=== PATIENT | female | born 1975 | race Caucasian/White ===

== ENCOUNTER 2024-06-08 08:30 | Outpatient (CLI) | payer BC, SELFPAY ==
--- NOTE | ~2024-06-08 | US_ITS ---
EXAMINATION: US retroperitoneal duplex ltd DATE: 06/08/2024 08:53 INDICATION: Essential hypertension TECHNIQUE: Multiple grayscale, color Doppler, and pulsed Doppler images of the kidneys and renal keanu nestor were obtained. COMPARISON: None. FINDINGS: The aorta peak systolic velocity is 109 cm/s. The right renal artery peak systolic velocity is 65 cm/ s in the proximal segment, 81 cm/s in the mid segment, and 64 cm/s in the distal segment. The left re nal artery peak systolic velocity is 113 cm/s in the proximal segment, 119 cm/s in the mid segment, a nd 97 cm/s in the distal segment. Incidentally noted is a 1 cm nonshadowing hyperechoic region within a 1.5 cm otherwise anechoic cystic lesion at the upper pole of the right kidney IMPRESSION: 1. No Doppler evidence of renal artery stenosis. 2. 1.5 cm complex cystic lesion at the upper pole the right kidney with 1.0 cm nodular hypoechoic reg ion within the cystic lesion without posterior acoustic shadowing to suggest a stone and could not ex clude a cystic neoplasm. Recommend further evaluation with pre and postcontrast MRI or CT. Reviewed, dictated and finalized at location B. IMPRESSION: 1. No Doppler evidence of renal artery stenosis. 2. 1.5 cm complex cystic lesion at the upper pole the right kidney with 1.0 cm nodular hypoechoic region within the cystic lesion without posterior acoustic s hadowing to suggest a stone and could not exclude a cystic neoplasm. Recommend further evaluation with pre and postcontrast MRI or CT.
== END 2024-06-08 08:31 | disposition home or self-care (01) ==
PROVIDERS: PCP Physician Assistant Medical; Visit Provider Physician Assistant Medical
DX: R93.89 Abnormal findings on diagnostic imaging of other specified body structures (principal); N28.1 Cyst of kidney, acquired; I10 Essential (primary) hypertension
CPT/HCPCS: 93976

== ENCOUNTER 2024-06-30 10:30 | Outpatient (CLI) | payer BC, SELFPAY ==
--- NOTE | ~2024-06-30 | MR_ITS ---
EXAMINATION: MR renal wo/w con DATE: 06/30/2024 12:07 INDICATION: Indeterminate renal lesion on prior ultrasound. TECHNIQUE: Magnetic resonance imaging (MRI) of the abdomen was performed without and with 13 mL ProHa nce intravenous contrast. Sequences included coronal T2-weighted SS-FSE, coronal and axial FS 2D-FIE STA, axial STIR FSE, axial T2-weighted SS-FSE, axial T2-weighted FS SS-FSE, axial diffusion-weighted SE, axial dual-echo T1-weighted FSPGR, and axial and coronal T1-weighted LAVA. Postcontrast axial T1- weighted LAVA images were obtained in a time course. Postcontrast coronal T1-weighted LAVA images wer e obtained. Due to poor contrast enhancement on the initial study likely due to extravasation the pa tient was returned on the following day for repeat postcontrast images utilizing a second bolus of 13 mm ProHance intravenous contrast. COMPARISON: Ultrasound dated 06/08/2024 FINDINGS: Heart size is normal. No pericardial or pleural effusion. 5.5 x 3.9 cm cavernous hemangioma at the do me of the liver with characteristic lobular margins, T2 hyperintensity and peripheral discontiguous p uddling of contrast which gradually fills in on the delayed imaging. Normal appendix. Spleen, pancrea s and bilateral adrenal glands are normal. There are a few subcentimeter T2 hyperintense nonenhancing bilateral renal cysts. There is a larger 2.2 x 1.5 similar T2 hyperintense cystic lesion at the uppe r pole of the right kidney with single 2 mm thick, smooth enhancing internal septation and without no dular enhancing soft tissue component which would be consistent with a Bosniak 2 lesion requiring no further follow-up. Visualized portions of bowels are unremarkable with no obstruction. No pathologica lly enlarged abdominal lymphadenopathy. Metallic magnetic field artifact associated with bilateral ve rtical eloisa and pedicle screw fixation at L5-S1. IMPRESSION: 1. Right renal lesion of concern corresponds to a 2.2 cm Bosniak 2 cystic lesion requiring no further follow-up. Reviewed, dictated and finalized at location A. IMPRESSION: 1. Right renal lesion of concern corresponds to a 2.2 cm Bosniak 2 cystic lesio n requiring no further follow-up.
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
--- OUTSIDE RECORDS SUMMARY | 2024-06-30 11:41 | XMS_ITS | Clinical Summary ---
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 Gender Identity Not on file Sexual Orientation Not on file Plan of Treatment Health Maintenance Due Date Last Done Comments Hepatitis C Virus (HCV) Screening 1977 Hepatitis B Immunization (1 of 3 - 19+ 3-dose series) 02/02/1996 Pap Smear 1998 Cervical Cancer Screening (CCS) 2007 HPV/Cotest 2007 Discussion re Starting/Frequency of Mammograms 2017 Colonoscopy 2022 Colorectal Cancer Screening 2022 Influenza Immunization (#1) 2023 12/25/2019, 1 SARS-COV-2 Immunization ( season) 2023 Respiratory Syncytial Virus (RSV) Immunization (Adult) (1 - 1-dose 75+ series) 02/02/2052 DTaP/Tdap/Td Immunization Discontinued 2017, 10/25/2017, 10/21/2017, Additional history exists TdaP Immunization Completed 11/16/2017, , 05/06/2014 Meningococcal Immunization (ACWY) Aged Out No longer eligible based on patient's age to complete this topic Pneumococcal Immunization Combined Aged Out No longer eligible based on patient's age to complete this topic Rotavirus Immunization Aged Out No lo nger eligible based on patient's age to complete this topic
--- OUTSIDE RECORDS SUMMARY | 2024-06-30 11:41 | XMS_ITS | Clinical Summary ---
Author Organization [facility] Address [address] [place] [address] Care Team Providers Care Fire Protection Engineering Technician Name Role Phone Viky Lobo PA-C Primary Care Provider [phone] Allergies No known active allergies Medications ALPRAZolam 0.5 MG tablet Take 1 tablet (0.5 mg total) by mouth as needed. 6 Active duloxetine 30 MG capsule Take 1 capsule (30 mg total) by mouth daily. Active vitamin B-12 (CYANOCOBALAMIN ) (CYANOCOBALAMIN ) 1000 mcg tablet Take 1 tablet (1,000 mcg total) by mouth daily. Active topiramate (TOPAMAX) 100 MG tablet Take 1 tablet (100 mg total) by mouth every evening. 3 Active gabapentin (NEURONTIN) 300 MG capsule Post op med 3 Active ketorolac (TORADOL) 10 MG tablet Post op med 3 Active oxyCODONE immediate release (ROXICODONE) 5 MG immediate release tablet Post op med 3 Active CONTRAVE 12 hr tablet Starting month 1 TAB DAILY 7 Days, THEN 1 TWICE DAILY 7 Days, THEN 2 in the AM AND 1 in the PM 7 Days THEN your maintenance dose is 2 TWICE DAILY 3 Active Active Problems No known active problems Family History Medical History Relation Comments Stroke Maternal Grandfather Diabetes Maternal Grandmother Breast Cancer Other Breast Cancer Paternal Aunt Relation Status Comments Maternal Aunt Maternal Grandfather Maternal Grandmother Other Paternal Aunt Social History Tobacco Use Types Packs/Day Years Used Date Smoking Tobacco: Never Smokeless Tobacco: Never Alcohol Use Standard Drinks/Week Comments Yes 0 (1 standard drink = 0.6 oz pur e alcohol) socially AUDIT-C Answer Date Recorded Frequency of Alcohol Consumption Never 02/15/2019 Average Number of Drinks Not on file 019 Frequency of Binge Drinking Not on file 03/2018 Comments No Sex and Gender Information Value Date Recorded Sex Assigned at Female 05/14/2024 8:41 AM GAS LEAK TESTER Legal Sex Female 5:20 PM CDT Gender Identity Not on file Sexual Orientation Not on file Last Filed Vital Signs Vital Sign Reading Time Taken Comments Blood Pressure 161/105 03/17/2024 1:00 PM GAS LEAK TESTER Pulse 98 03/17/2024 11:30 AM GAS LEAK TESTER Temperature 36.7 C (98 F) 03/17/2024 11:30 AM GAS LEAK TESTER Respiratory Rate 20 03/17/2024 11:30 AM GAS LEAK TESTER Oxygen Saturation 95% 03/17/2024 1:05 PM GAS LEAK TESTER Inhaled Oxygen Concentration - - Weight 60.3 kg (133 lb) 03/17/2024 11:30 AM GAS LEAK TESTER Height 160 cm (5' 3 ) 03/17/2024 11:30 AM GAS LEAK TESTER Body Mass Index 23.56 03/17/2024 11:30 AM GAS LEAK TESTER Plan of Treatment Upcoming Encounters Date Type Department Care Team (Late st Contact Info) Description 07/02/2024 12:15 PM CDT [facility] [address] [place] [phone] Dustin Baugh MD [facility]. [address] [address] Health Maintenance Due Date Last Done Comments Cervical Cancer Screening Pap Smear (Age 30 to 64) Every 3 Years 1977 Colorectal Cancer Screening Colonoscopy (10 Years) 1977 Annual Physical 02/02/1980 Hepatitis B Vaccines (1 of 3 - 19+ 3-dose series) 02/02/1996 Cervical Cancer Screening Pap with HPV Testing (Age 30 to 64) Every 5 Years 2007 Cervical Cancer Screening with HPV 2007 COVID-19 Vaccine ( season) 2023 Mammogram Screening 12/26/2025 12/27/2023, 03/15/2022, 12/09/2020, Additional history exists DTaP, Tdap and Td Vaccines (3 - Td or Tdap) 10/07/2030 10/07/2020, 10/25/2017 Hepatitis C Completed 09/30/2015 Meningococcal B Vaccine Aged Out No l onger eligible based on patient's age to complete this topic Meningococcal Vaccine Aged Out No hugh juan eligible based on patient's age to complete this topic Pneumococcal Vaccine: Pediatrics (0 to 5 Years) and At-Risk Patients (6 to 49 Years) Aged Out No longer eligible based on patient's age to complete this topic RSV Immunizations Under 20 Months Aged Out No longer eligible based on patient's age to complete this topic Procedures Procedure Name Priority Date/Time Associated Diagnosis Comments MG SCREENING W GENA THAO DIGI Routine 12/27/2023 12:51 PM CDT Encounter for screening mammogram for malignant neoplasm of breast from Last 3 Months or Most Recently Relevant to Health Maintenance Results * MG SCREENING W GENA THAO DIGI (12/27/2023 12:51 PM CDT) Anatomical Region Laterality Modality Breast Bilateral Mammography 12/27/2023 4:16 PM CDT Impressions 12/27/2023 4:28 PM CDT ===== IMPRESSION: ===== 1. Stable mammographic appearance with no new findings to suggest malignancy in either breast. Assessment: ACR BI-RADS 1 - NEGATIVE Recommendation: 1:Routine Screening Bilateral Comments: Ordered By: GUERO KAHN Interpreted By: Lexi Silverman, 12/27/2023 4:16 PM Narrative 12/27/2023 4:28 [place] [address] EXAMINATION: Digital bilateral screening mammogram with 3-D tomosynthesis EXAM DATE/TIME: 12/27/2023 12:18 PM REASON FOR EXAM: Routine screening Breast carcinoma and aunt in her 50s COMPARISON: 12/09/2020. 03/15/2022 Technique: Digital screening mammography of both breasts was performed in addition to 3-D Tomosynthesis technique. This study was read with the assistance of a computer-aided detection system. Tissue density: There are scattered areas of fibroglandular density. Findings: There is no new focal asymmetry, dominant mass lesion, area of skin thickening, or cluster of suspicious appearing calcifications in either breast to suggest malignancy. us Guero Kahn MD MAMMO Final Resul t from Last 3 Months or Most Recently Relevant to Health Maintenance Insurance [facility] Advance Directives * Full Code (Latest Code Status on File) Date Activated Date Inactivated Comments 12/10/2022 11:14 AM 12/10/2022 4:15 PM Care Teams Fire Protection Engineering Technician Relationship Specialty Start Date End Date Viky Lobo PA-C [address] [place] [address] [address] [place] [address] PCP - General PHYSICIAN SUPERINTENDENT TRACK 09/28/22
--- OUTSIDE RECORDS SUMMARY | 2024-06-30 11:42 | XMS_ITS | Encounter Summary ---
Author Organization [facility] Address [facility] [place] [address] Care Team Providers Care Crutching Contractor Name Role Phone Elaine Judge NP Primary Care Provider Victor Manuel Rod MD Primary Care Provider [phone] Viky Lobo PA-C Primary Care Provider [phone] Encounter Details Date Type Department Care Team (Late st Contact Info) Description 04/03/2016 Abstract [facility] CONVERSION [address] [place] [address] , Generic ConversionMD Social History Tobacco Use Types Packs/Day Years Used Date Smoking Tobacco: Never Assessed Comments Unknown Sex and Gender Information Value Date Recorded Sex Assigned at Female 05/14/2024 8:41 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 [address] [place] [phone] Dustin Baugh MD [facility]. [address] [place] [address] [place] [address] documented as of this encounter Visit Diagnoses Not on filedocumented in this encounter Care Teams Crutching Contractor Relationship Specialty Start Date End Date Elaine Judge NP [address] [place] [address] PCP - General NURSE PRACTITIONER 09/25/18 04/24/20 Victor Manuel Rod MD [address] [place] [id number] PCP - General INTERNAL MEDICINE 04/25/20 09/27/22 Viky Lobo PA-C [address] [place] [id number] PCP - General PHYSICIAN FREIGHT TEAM ASSOCIATE 09/28/22 documented as of this encounter
--- OUTSIDE RECORDS SUMMARY | 2024-06-30 11:42 | XMS_ITS | Encounter Summary ---
Author Organization [facility] Address [facility] [place] [address] Care Team Providers Care Customs Verifier Name Role Phone Elaine Judge NP Primary Care Provider Victor Manuel Rod MD Primary Care Provider [phone] Viky Lobo PA-C Primary Care Provider [phone] Encounter Details Date Type Department Care Team (Late st Contact Info) Description 12/09/2017 Abstract [facility] CONVERSION [address] [place] [address] , Generic ConversionMD Social History Tobacco Use Types Packs/Day Years Used Date Smoking Tobacco: Never Assessed Comments Unknown Sex and Gender Information Value Date Recorded Sex Assigned at Female 05/14/2024 8:41 AM ESCORT BLIND Legal Sex Female 5:20 PM CDT Gender Identity Not on file Sexual Orientation Not on file documented as of this encounter Plan of Treatment Upcoming Encounters Date Type Department Care Team (Late st Contact Info) Description 07/02/2024 12:15 PM CDT [facility] [place] [facility] [address] [place] [phone] Dustin Baugh MD [facility]. [place] [address] [place] [address] documented as of this encounter Visit Diagnoses Not on filedocumented in this encounter Care Teams Customs Verifier Relationship Specialty Start Date End Date Elaine Judge NP [address] [place] [address] PCP - General NURSE PRACTITIONER 09/25/18 04/24/20 Victor Manuel Rod MD [address] [place] [id number] PCP - General INTERNAL MEDICINE 04/25/20 09/27/22 Viky Lobo PA-C [address] [place] [id number] PCP - General PHYSICIAN COMMERCIAL FINANCE ANALYST 09/28/22 documented as of this encounter
--- OUTSIDE RECORDS SUMMARY | 2024-06-30 11:42 | XMS_ITS | Encounter Summary ---
Author Organization [facility] Address [facility] [place] [address] Care Team Providers Care Field Marketing Team Leader Name Role Phone Victor Manuel Rod MD Primary Care Provider [phone] Viky Lobo PA-C Primary Care Provider [phone] Encounter Details Date Type Department Care Team (Late st Contact Info) Description 07/29/2020 Mister Bell [facility] Patient Accounts [address] [place] [address] [facility] Financial Assistance Application Social History Tobacco Use Types Packs/Day Years Used Date Smoking Tobacco: Never Smokeless Tobacco: Never Alcohol Use Standard Drinks/Week Comments No 0 (1 standard drink = 0.6 oz pur e alcohol) AUDIT-C Answer Date Recorded Frequency of Alcohol Consumption Never 02/15/2019 Average Number of Drinks Not on file 019 Frequency of Binge Drinking Not on file 03/2018 Comments No Sex and Gender Information Value Date Recorded Sex Assigned at Female 05/14/2024 8:41 AM 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 MANAGER Legal Sex Female 5:20 PM CDT Gender Identity Not on file Sexual Orientation Not on file documented as of this encounter Plan of Treatment Upcoming Encounters Date Type Department Care Team (Late st Contact Info) Description 07/02/2024 12:15 PM CDT Office Visit [place] [facility] [address] [place] [phone] Dustin Baugh MD [address] [address] documented as of this encounter Visit Diagnoses Not on filedocumented in this encounter Care Teams Field Marketing Team Leader Relationship Specialty Start Date End Date Victor Manuel Rod MD [address] [place] [id number] PCP - General INTERNAL MEDICINE 04/25/20 09/27/22 Viky Lobo PA-C [address] [place], [place] [address] [place] [address] PCP - General PHYSICIAN DRAFTER MARINE 09/28/22 documented as of this encounter
== END 2024-06-30 10:31 | disposition home or self-care (01) ==
PROVIDERS: PCP Physician Assistant Medical; Visit Provider Physician Assistant Medical
DX: R93.429 Abnormal radiologic findings on diagnostic imaging of unspecified kidney (principal); N28.9 Disorder of kidney and ureter, unspecified
CPT/HCPCS: 74183; A9579